=== PATIENT | female | born 1940 | race Caucasian/White ===

== ENCOUNTER 2019-09-13 14:53 | Emergency (ER) | payer SELFPAY ==
[~2019-09-13] VITALS: Ht 160 cm; Wt 84.4 kg
[2019-09-13 15:51] VITALS: Ht 160 cm; Wt 84.4 kg
[2019-09-13 19:06] VITALS: BP 164/91
== END 2019-09-13 19:06 | disposition home or self-care (01) ==
LOC: ED 14:53
DX: M25.561 Pain in right knee (principal); M25.562 Pain in left knee; M54.9 Dorsalgia, unspecified
CPT/HCPCS: J1885